=== PATIENT | female | born 2000 ===

== ENCOUNTER 2025-01-29 18:52 | Emergency (ER) | payer BC ==
[2025-01-29] MEDS: Diphtheria,Pertussis(Acell),Tetanus Vaccine 0.5 ML Syringe IM ONE (19:05)
[2025-01-29] MEDS: Tetracaine HCl/PF 0.5% 4 ML Bottle EYEBOTH ONE (19:05)
[2025-01-29] MEDS: Fluorescein 1 MG Ophth Strip EYEBOTH ONE (19:09)
== END 2025-01-29 19:32 | disposition home or self-care (01) ==
LOC: MW.ED 18:52
DX: S05.01XA Injury of conjunctiva and corneal abrasion without foreign body, right eye, initial encounter (principal); Z75.3 Unavailability and inaccessibility of health-care facilities; Z79.899 Other long term (current) drug therapy; X58.XXXA Exposure to other specified factors, initial encounter; Y93.89 Activity, other specified
CPT/HCPCS: 90471; 90715; 99283; A9270; J3490